=== PATIENT | female | born 1980 | race Asian ===

== ENCOUNTER 2017-07-04 00:54 | Inpatient (IN) | payer SELFPAY ==
[~2017-07-04] VITALS: Ht 157.5 cm; Wt 61.7 kg
[2017-07-04] MEDS ORDERED: CITRIC ACID/SODIUM CITRATE 30 ML UDC PO SCH (02:35)
[2017-07-04 03:16] LABS: BASOPHILS # (AUTO) 0.1 K/uL (0.00-0.22); BASOPHILS % (AUTO) 0.8 % (0.0-2.0); EOSINOPHILS # (AUTO) 0.1 K/uL (0-0.4); EOSINOPHILS % (AUTO) 0.7 % (0.0-4.0); HEMATOCRIT 38.1 % (36-48); HEMOGLOBIN 12.7 g/dL (12.0-16.0); LYMPHOCYTES # (AUTO) 2.3 K/uL (2.5-16.5); LYMPHOCYTES % (AUTO) 26.7 % (20.5-51.1); MEAN CORPUSCULAR HEMOGLOBIN 31 pg (27-31); MEAN CORPUSCULAR HGB CONC 33 g/dL (33-37); MEAN CORPUSCULAR VOLUME 93 fL (80-94); MONOCYTES # (AUTO) 0.6 K/uL (0.8-1.0); MONOCYTES % (AUTO) 6.6 % (1.7-9.3); NEUTROPHILS # (AUTO) 5.6 K/uL (1.8-7.7); NEUTROPHILS % (AUTO) 65.2 % (42.2-75.2); PLATELET COUNT (AUTO) 266 K/uL (140-450); RED BLOOD CELL COUNT(AUTO) 4.09 MIL/uL (4.20-5.40); RED CELL DISTRIBUTION WIDTH 12.3 % (11.6-13.7); WHITE BLOOD COUNT (AUTO) 8.7 K/uL (4.8-10.8)
[2017-07-04 03:17] LABS: APPEARANCE,URINE CLEAR (CLEAR); BILIRUBIN,URINE NEGATIVE (NEGATIVE); BLOOD, URINE 1+ (NEGATIVE); COLOR,URINE YELLOW (YELLOW); LEUKOCYTE ESTERASE ,URINE NEGATIVE (NEGATIVE); NITRITE, URINE NEGATIVE (NEGATIVE); UGLUCOSE NEGATIVE (NEGATIVE)
[2017-07-04] MEDS: LACTATED RINGERS 1,000 ML IV SCH ×2 (03:35→06:15)
[2017-07-04 03:54] LABS: ALBUMIN 2.6 g/dL (3.4-5.0); ANION GAP 14.6 (8-16); CARBON DIOXIDE 22.1 mmol/L (21-32); CREATININE 0.6 mg/dL (0.6-1.3); POTASSIUM 3.7 mmol/L (3.5-5.1); TOTAL BILIRUBIN 0.1 mg/dL (0.0-1.0)
[2017-07-04 04:19] VITALS: BP 112/71
[2017-07-04] MEDS ORDERED: INFLUENZA VIRUS VACCINE QUAD 0.5 ML SYR IMVAC SCH (04:20)
[2017-07-04] MEDS ORDERED: FERR325E14 PO (04:22)
[2017-07-04] MEDS ORDERED: PREN-546 PO (04:22)
[2017-07-04 05:22] LABS: RBC,URINE 0-5 (RARE) /HPF (0-5); WBC,URINE 0-5 (RARE) /HPF (0-5)
[2017-07-04] MEDS ORDERED: CITRIC ACID/SODIUM CITRATE 30 ML UDC ONE (06:24)
[2017-07-04] MEDS ORDERED: ceFAZolin 1,000 MG VIAL ONE (06:24)
[2017-07-04] MEDS ORDERED: BUPIVACAINE-MPF 0.75% 10 ML VIAL INJ ONE (06:30)
[2017-07-04] MEDS ORDERED: ePHEDrine 50 MG/ML VIAL IV ONE (06:30)
[2017-07-04] MEDS ORDERED: OXYTOCIN 10 UNITS/ML VIAL ONE (06:35)
[2017-07-04] MEDS ORDERED: TRIAMCINOLONE 40 MG/ML 5ML VIAL ONE (06:35)
[2017-07-04] MEDS ORDERED: METHYLERGONOVINE 0.2 MG/ML AMP ONE (06:36)
[2017-07-04] MEDS ORDERED: MORPHINE PRES FREE 10 MG/10 ML AMP IV ONE (06:56)
[2017-07-04] MEDS ORDERED: MIDAZOLAM 2 MG/2 ML VIAL ONE (06:56)
[2017-07-04] MEDS ORDERED: OXYTOCIN 20 UNITS in LACTATED RINGERS 1,000 ML IV SCH (07:03)
[2017-07-04] MEDS ORDERED: TEMAZEPAM 15 MG CAP PO PRN (07:05)
[2017-07-04] MEDS ORDERED: METHYLERGONOVINE 0.2 MG/ML AMP IM PRN (07:05)
[2017-07-04] MEDS ORDERED: TRIMETHOBENZAMIDE 200 MG/2 ML SYR IM PRN (07:05)
[2017-07-04] MEDS ORDERED: SIMETHICONE 80 MG TAB.CHEW PO PRN (07:05)
[2017-07-04] MEDS ORDERED: HYDROcodone/APAP 5/325 MG 1 TAB TAB PO PRN (07:05)
[2017-07-04] MEDS ORDERED: oxyCODONE/APAP 5/325 MG 1 TAB TAB PO PRN (07:05)
[2017-07-04] MEDS ORDERED: MEASLES, MUMPS, AND RUBELLA 1 VIAL SQVAC PRN (07:05)
[2017-07-04] MEDS ORDERED: KETOROLAC 30 MG/ML VIAL IVP PRN (07:25)
[2017-07-04] MEDS ORDERED: diphenhydrAMINE 50 MG/ML VIAL IVP PRN (07:25)
[2017-07-04] MEDS ORDERED: ONDANSETRON 4 MG/2 ML VIAL IVP PRN (07:25)
[2017-07-04] MEDS ORDERED: diphenhydrAMINE 50 MG/ML VIAL ONE (07:39)
[2017-07-04] MEDS ORDERED: ONDANSETRON 4 MG/2 ML VIAL ONE (07:55)
[2017-07-04] MEDS: OXYTOCIN 20 UNITS/LR PREMIX 1,000 ML IV ONE ×2 (08:07→08:25)
--- NOTE | 2017-07-04 08:41 | NUR ---
PATIENT HAS BEEN SCREENED ANSD CATEGORIZED LOW NURITIONAL RISK. PATIENT WILL BE SEEN WITHIN 7 DAYS OF ADMISSION. 07/10/[address]
[2017-07-04] MEDS: OXYTOCIN 20 UNITS in LACTATED RINGERS 1,000 ML IV SCH ×2 (10:00→18:54)
[2017-07-04] MEDS ORDERED: DOCUSATE SOD/SENNA 50/8.6 MG 1 TAB PO SCH (21:00)
[2017-07-05] MEDS ORDERED: OXYTOCIN 10 UNITS/ML VIAL ONE (03:07)
[2017-07-05] MEDS: OXYTOCIN 20 UNITS in LACTATED RINGERS 1,000 ML IV SCH (03:30)
[2017-07-05 06:59] LABS: BASOPHILS # (AUTO) 0.1 K/uL (0.00-0.22); BASOPHILS % (AUTO) 0.4 % (0.0-2.0); EOSINOPHILS % (AUTO) 0.2 % (0.0-4.0); HEMATOCRIT 31.6 % (36-48); LYMPHOCYTES # (AUTO) 1.4 K/uL (2.5-16.5); MEAN CORPUSCULAR HEMOGLOBIN 33 pg (27-31); MEAN CORPUSCULAR HGB CONC 35 g/dL (33-37); MEAN CORPUSCULAR VOLUME 93 fL (80-94); MONOCYTES # (AUTO) 0.6 K/uL (0.8-1.0); MONOCYTES % (AUTO) 3.5 % (1.7-9.3); NEUTROPHILS # (AUTO) 13.9 K/uL (1.8-7.7); NEUTROPHILS % (AUTO) 86.9 % (42.2-75.2); PLATELET COUNT (AUTO) 236 K/uL (140-450); RED BLOOD CELL COUNT(AUTO) 3.39 MIL/uL (4.20-5.40); RED CELL DISTRIBUTION WIDTH 11.9 % (11.6-13.7)
[2017-07-05] MEDS: IBUPROFEN 800 MG TAB PO PRN ×2 (10:54→20:35)
[2017-07-06] MEDS ORDERED: INFLUENZA VIRUS VACCINE QUAD 0.5 ML SYR IMVAC SCH (02:00)
[2017-07-06] MEDS: IBUPROFEN 800 MG TAB PO PRN ×3 (08:55→21:44)
[2017-07-06] MEDS: guaiFENesin 20 MG/ML UDC PO PRN ×3 (08:55→21:46)
[2017-07-07] MEDS: guaiFENesin 20 MG/ML UDC PO PRN ×2 (04:08→20:23)
[2017-07-07] MEDS: IBUPROFEN 800 MG TAB PO PRN ×3 (04:16→20:22)
== END 2017-07-07 22:30 | disposition home or self-care (01) | DRG 766 ==
LOC: MFCC 00:54 → MLD 02:03 → MFCC 08:30
PROVIDERS: ADMIT Obstetrics & Gynecology; ATTEND Obstetrics & Gynecology
PROC: 10D00Z1 Extraction of Products of Conception, Low, Open Approach (ICD-10-PCS; principal; 2017-07-04 07:00)
PROC: 3E0234Z Introduction of Serum, Toxoid and Vaccine into Muscle, Percutaneous Approach (ICD-10-PCS; 2017-07-06)
PROC: 3E0234Z Introduction of Serum, Toxoid and Vaccine into Muscle, Percutaneous Approach (ICD-10-PCS; 2017-07-06)
DX: O44.40 Low lying placenta NOS or without hemorrhage, unspecified trimester (principal); Z23 Encounter for immunization; Z37.0 Single live birth; Z3A.38 38 weeks gestation of pregnancy; Z82.49 Family history of ischemic heart disease and other diseases of the circulatory system
CPT/HCPCS: 36415; 51702; 80053; 81001; 85025; 86592; 86886; 86900; 86901; 90658; 90715; J0690; J1200; J2210; J2250; J2270; J2405; J2590; J3301; J3490; J7060; J7120